=== PATIENT | male | born 1980 | race Two or more races ===

== ENCOUNTER 2019-03-22 16:15 | Emergency (ER) | payer SELFPAY ==
[~2019-03-22] VITALS: Ht 175.3 cm; Wt 104.3 kg
[2019-03-22 16:24] VITALS: BP 131/86
--- NOTE | 2019-03-22 16:30 | NUR ---
EDITH DECKER AT BEDSIDE FOR EVAL.
--- NOTE | 2019-03-22 16:40 | NUR ---
[employer] was called, no eta given
[2019-03-22] MEDS ORDERED: ONDANSETRON 4 MG TAB.RAPDIS ONE (16:43)
[2019-03-22] MEDS ORDERED: ONDANSETRON 4 MG TAB.RAPDIS SL ONE (17:00)
--- NOTE | 2019-03-22 17:30 | NUR ---
PT WHEELED TO CT SCAN VIA [facility].
[2019-03-22] MEDS ORDERED: IBUPROFEN 400 MG TABLET ONE (18:27)
[2019-03-22] MEDS ORDERED: IBUPROFEN 400 MG TABLET PO ONE (18:30)
--- NOTE | 2019-03-22 18:36 | NUR ---
followed up with [facility], responding soon, incident # [id number]
--- NOTE | 2019-03-22 19:10 | NUR ---
[employer] OFFICER SHASTA AT BEDSIDE.
--- NOTE | 2019-03-22 19:18 | NUR ---
Patient discharged to home in stable condition. Written and verbal after care instructions given. Patient verbalizes understanding of instruction.
== END 2019-03-22 19:19 | disposition home or self-care (01) ==
LOC: ER 16:19
DX: S00.03XA Contusion of scalp, initial encounter (principal); S49.81XA Other specified injuries of right shoulder and upper arm, initial encounter; Y04.0XXA Assault by unarmed brawl or fight, initial encounter; Y93.89 Activity, other specified; Y92.89 Other specified places as the place of occurrence of the external cause; Y99.8 Other external cause status
CPT/HCPCS: 70450; 73030; 99284; Q0162